=== PATIENT | female | born 1960 | race American Indian/Alaskan Native ===

== ENCOUNTER 2017-03-09 22:50 | Emergency (ER) | payer MEDICAID ==
[2017-03-09 23:15] VITALS: BP 140/79
[2017-03-09] MEDS ORDERED: Acetaminophen/HYDROcodone 325-5 MG Tab PO ONE (23:16)
[2017-03-09] MEDS ORDERED: Doxycycline 100 MG Cap PO ONE (23:24)
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
== END 2017-03-09 23:53 | disposition home or self-care (01) ==
LOC: JP.ED 22:50
DX: J01.90 Acute sinusitis, unspecified (principal); E11.43 Type 2 diabetes mellitus with diabetic autonomic (poly)neuropathy; I10 Essential (primary) hypertension; F32.9 Major depressive disorder, single episode, unspecified; F41.0 Panic disorder [episodic paroxysmal anxiety]; F17.210 Nicotine dependence, cigarettes, uncomplicated; Z79.899 Other long term (current) drug therapy; Z98.84 Bariatric surgery status; Z90.710 Acquired absence of both cervix and uterus; Z90.721 Acquired absence of ovaries, unilateral; Z90.49 Acquired absence of other specified parts of digestive tract; Z98.890 Other specified postprocedural states; Z88.0 Allergy status to penicillin; Z88.8 Allergy status to other drugs, medicaments and biological substances; Z87.442 Personal history of urinary calculi
CPT/HCPCS: 99283; A9270

== ENCOUNTER 2023-03-02 07:57 | Day surgery (SDC) | payer MEDICARE, MEDICAID ==
[~2023-03-02 07:57] MED LIST: Midazolam 1 MG/ML 2 ML SDV ONE; Propofol 200 MG/20 ML SDV ONE; fentaNYL 50 MCG/ML SDV ONE
[2023-03-02] MEDS ORDERED: Sodium Chloride 0.9% 1,000 ML IV SCH (09:00)
[2023-03-02 11:16] VITALS: BP 126/73; PULSE 68
== END 2023-03-02 11:17 | disposition home or self-care (01) ==
LOC: JP.SDS 07:57
PROVIDERS: ATTEND Surgery
DX: K22.70 Barrett's esophagus without dysplasia (principal); K31.A0 Gastric intestinal metaplasia, unspecified; K21.9 Gastro-esophageal reflux disease without esophagitis
CPT/HCPCS: 43239; 82947; J2250; J2704; J3010; J7030; 88305

== ENCOUNTER 2025-07-22 09:11 | Day surgery (SDC) | payer MEDICARE ==
[2025-07-22] MEDS: Lactated Ringers 1,000 ML IV SCH (09:49)
[2025-07-22] MEDS ORDERED: fentaNYL 50 MCG/ML SDV ONE (11:03)
[2025-07-22] MEDS ORDERED: Propofol 200 MG/20 ML SDV ONE (11:03)
[2025-07-22 12:21] VITALS: BP 136/73; PULSE 61
== END 2025-07-22 12:25 | disposition home or self-care (01) ==
LOC: JP.SDS 09:11
PROVIDERS: ATTEND Surgery
DX: K20.90 Esophagitis, unspecified without bleeding (principal); I10 Essential (primary) hypertension; F32.A Depression, unspecified; F41.9 Anxiety disorder, unspecified; Z88.6 Allergy status to analgesic agent; Z88.0 Allergy status to penicillin; Z79.899 Other long term (current) drug therapy
CPT/HCPCS: 00731; 43239; J2250; J2704; J3010; J7120